=== PATIENT | male | born 1945 | race Caucasian/White ===

== ENCOUNTER 2016-07-19 15:02 | Emergency (ER) | payer MEDICARE ==
[2016-07-19 16:12] LABS: RED BLOOD COUNT 4.11 M/UL (4.20-5.50); WHITE BLOOD COUNT 10.3 K/UL (4.5-11.0)
[2016-07-19 16:33] LABS: BUN/CREATININE RATIO 22 (0-10)
== END 2016-07-19 21:35 | disposition short-term general hospital (02) ==
LOC: ER1 15:02
PROVIDERS: Physician Assistant
DX: K80.70 Calculus of gallbladder and bile duct without cholecystitis without obstruction (principal); D64.9 Anemia, unspecified; Z88.5 Allergy status to narcotic agent; Z86.73 Personal history of transient ischemic attack (TIA), and cerebral infarction without residual deficits
CPT/HCPCS: 36415; 73060; 80053; 81001; 82150; 82550; 82553; 83690; 83874; 84484; 85025; 93005; 96361; 96374; 96375; 96376; 99285; J2405; J7050; Q9962